=== PATIENT | male | born 1970 | race Caucasian/White ===

== ENCOUNTER → 2018-10-12 | Day surgery (SDC) | payer OTHER ==
[~2018-10-12] MED LIST: AMLODIPINE BESY10 MG PO; ASPIRIN81 MG PO; BACITRACIN 50,000 UNIT VIAL ONE; BUPIVACAINE HCL 0.5% INJ 30 ML VIAL INJ ONE; CEFAZOLIN SOD 1 GM/NS 50ML 50 ML IV ONE; DEXAMETHASONE SOD PHOS INJ 4 MG/ML VIAL ONE; EPHEDRINE SULFATE INJ 50 MG/10 ML SYR ONE; FENTANYL CITRATE/PF 100MCG/2 ML INJ ONE; GLYCOPYRROLATE INJ 1MG/ 5 ML SYR ONE; KETOROLAC TROMETHAMINE 30 MG/ML VIAL ONE; LEXAPRO10 MG PO; LIDOCAINE HCL 2% LOCAL INJ 5 ML SDV VIAL INJ ONE; LOPID600 MG PO; MIDAZOLAM HCL 2 MG/2 ML VIAL ONE; NEOSTIGMINE 5 MG/5ML SYR ONE; ONDANSETRON HCL INJ 2MG/ML 2ML 2 MG/ML VIAL ONE; PLAVIX75 MG PO; PROPOFOL IV EMULSION 10 MG/ML 20 ML VIAL ONE; ROCURONIUM BROMIDE 10 MG/ML 5ML VIAL ONE; SEVOFLURANE INHAL SOLN 250 ML PEN BTL ONE
[2018-10-12 09:25] VITALS: BP 145/93
--- NOTE | 2018-10-12 15:21 | Operative Report ---
DATE OF PROCEDURE: 10/12/2018 SURGEON: Jaimee Rodriguez DPM PREOPERATIVE DIAGNOSES: 1. Right retrocalcaneal exostosis. 2. Right gastrocnemius equinus. POSTOPERATIVE DIAGNOSES: 1. Right retrocalcaneal exostosis. 2. Right gastrocnemius equinus. PLANNED PROCEDURES: 1. Right retrocalcaneal exostectomy. 2. Right gastrocnemius recession. SURGEON: Tiffany Tubbs DPM ([place]) NUC[employer]AR [employer]ACTOR OPERATOR: Jaimee Rodriguez DPM ANESTHESIA: General with a postoperative block consisting of 20 mL of 0.5% Marcaine plain. HEMOSTASIS: Pneumatic thigh tourniquet set at 350 mmHg for a total time of approximately 1 hour. MATERIALS: Arthrex SpeedBridge, 3-0 Vicryl, 4-0 nylon. ESTIMATED BLOOD LOSS: Less than 10 mL. PATHOLOGY: None. PROCEDURE NOTE: The patient was seen in the preoperative waiting room with the correct procedure and site was identified. The patient was brought to the operating room, where general anesthesia was initiated. A well-padded pneumatic tourniquet was placed about the patient's right thigh. The patient was then flipped to the operating table in the prone position. The right foot, ankle, and leg were then scrubbed, prepped, and draped in the usual aseptic manner. The right foot, ankle, leg were exsanguinated with an Esmarch bandage and the pneumatic thigh tourniquet was inflated to 350 mmHg for a total time of approximately 1 hour. Attention was directed to the posterior aspect of the patient's right calf near the gastrocnemius aponeurosis. A 5 cm linear incision was made directly over the gastroc aponeurosis, it was carried through sharp and blunt dissection down to the level of the gastroc aponeurosis. The paratenon was incised to allow for good visualization. Utilizing a noejdd-ea-awldup type incision, two cuts were made distally, medial and lateral, one cut was made centrally. The foot was then dorsiflexed and found to be increased by approximately 10 degrees. The wound was then copiously irrigated with sterile saline, mixed with bacitracin. The deep tissues reapproximated with 3-0 Vicryl and the skin was closed using running interlocking stitch of 3-0 nylon. Attention was then directed to the posterior aspect of the patient's right heel, where a large exostosis was noted. A 6 cm linear incision was made directly over the exostosis. Incision was carried to subcutaneous tissue them from deep or underlying structures. All vital neurovascular structures were identified, retracted medially and laterally. All bleeders were cauterized or ligated as deemed necessary. An inverted T incision was made directly over the tendon. The tendon was noted to be thickened, approximately 2 to 3 times a thickness of a nonpathologic Achilles tendon. The tendon was reflected off the posterior aspect of the heel. The retrocalcaneal exostosis was easily identified. Utilizing osteotome and mallet and bur, was smoothed to anatomic alignment, this was confirmed via intraoperative fluoroscopy. Next, the tendon was debrided down to anatomic alignment by debulking excess diseased tendon. Next, per manufacture protocol 2-0 SpeedBridge Arthrex was performed. The tendon was tacked with bone anchors in a crossing knotless fashion and was noted to be functioning in anatomic alignment. The remaining aspect of the tendon was reapproximated with 3-0 Vicryl, subcutaneous tissue with 3-0 Vicryl. The skin was closed in a running locking stitch with 3-0 nylon. Incision site was then dressed with Adaptic, 4x4s, Kerlix, and a 4 x 30 posterior splint, 4-inch Isaias wrap, and a 6-inch Isaias wrap. The patient tolerated the procedure and anesthesia well. The patient was transferred to the postoperative recovery unit with vital signs stable and vascular status intact. The patient was monitored for a short period of time before being sent home with the following written and oral instructions: 1. Keep the dressing clean, dry, and intact. 2. The patient is to remain nonweightbearing to the right lower extremity to avoid any ambulation until being seen in the office. 3. The patient was given office number and instructed to contact us if any problems arise. Dictated by Jaimee Rodriguez DPM S KIYA Pickens ([place])/MODL /[id number]
== END | disposition home or self-care (01) ==
LOC: OR 05:00
PROVIDERS: ATTEND Podiatrist Foot & Ankle Surgery
DX: M21.6X1 Other acquired deformities of right foot (principal); M89.9 Disorder of bone, unspecified; M76.61 Achilles tendinitis, right leg; M67.01 Short Achilles tendon (acquired), right ankle; I10 Essential (primary) hypertension; E78.5 Hyperlipidemia, unspecified; F32.9 Major depressive disorder, single episode, unspecified; F41.9 Anxiety disorder, unspecified; Z01.810 Encounter for preprocedural cardiovascular examination; Z79.02 Long term (current) use of antithrombotics/antiplatelets; Z79.82 Long term (current) use of aspirin; Z86.73 Personal history of transient ischemic attack (TIA), and cerebral infarction without residual deficits; Z87.891 Personal history of nicotine dependence
CPT/HCPCS: 27687; 28118; 93005; C1713; J0690; J1100; J1885; J2001; J2250; J2405; J2704; J3010; J3490